=== PATIENT | female | born 1990 | race Hispanic/Latino ===

== ENCOUNTER 2018-09-05 14:56 | Emergency (ER) | payer SELFPAY ==
[~2018-09-05] VITALS: Ht 157.5 cm; Wt 63.5 kg
[2018-09-05 15:47] LABS: BASOPHILS % 0.3 % (0.0-1.0); EOSINOPHILS % 0.6 % (0.0-6.0); HEMATOCRIT 33.8 % (34.2-44.1); HEMOGLOBIN 10.3 g/dL (12.0-16.0); LYMPHOCYTES # (AUTO) 1.5 (1.0-3.2); LYMPHOCYTES % 21.3 % (18.0-39.1); MEAN CORPUSCULAR HEMOGLOBIN 23.6 pg (28-32); MEAN CORPUSCULAR HGB CONC 30.5 g/dL (31-35); MEAN CORPUSCULAR VOLUME 77.5 fL (81-99); MONOCYTES # (AUTO) 0.3 (0.2-0.8); MONOCYTES % 3.7 % (4.4-11.3); NEUTROPHILS # (AUTO) 5.1 (2.1-6.9); NEUTROPHILS % 73.8 % (38.7-80.0); PLATELET COUNT 403 x10e3/uL (140-360); RED BLOOD COUNT 4.36 x10e6/uL (3.6-5.1); RED CELL DISTRIBUTION WIDTH 16.1 % (11.7-14.4)
[2018-09-05] MEDS ORDERED: HYDROCODONE/APAP 10MG-325MG TAB PO NR (16:00)
[2018-09-05] MEDS ORDERED: ONDANSETRON HCL 4 MG ORAL DISINTEGRATING TAB PO NR (16:00)
[2018-09-05 16:05] LABS: ALANINE AMINOTRANSFERASE 14 IU/L (0-55); ALBUMIN 4.2 g/dL (3.5-5.0); ALBUMIN/GLOBULIN RATIO 1.2 (0.8-2.0); ALKALINE PHOSPHATASE 62 IU/L (40-150); ANION GAP 14.7 mmol/L (8-16); BLOOD UREA NITROGEN 8 mg/dL (7-26); BUN/CREATININE RATIO 13 (6-25); CALCIUM 9.3 mg/dL (8.4-10.2); CARBON DIOXIDE 22 mmol/L (22-29); CHLORIDE 103 mmol/L (98-107); CREATININE, SERUM 0.64 mg/dL (0.57-1.11); EST GLOMERULAR FILTRATION RATE > 60 ML/MIN (60-); GLUCOSE 112 mg/dL (74-118); POTASSIUM 3.7 mmol/L (3.5-5.1); SODIUM 136 mmol/L (136-145)
[2018-09-05 16:30] LABS: HCG,QUANTITATIVE 37136.89 mIU/mL (0-10)
--- NOTE | 2018-09-05 16:47 | Diagnostic Imaging Report ---
EXAMINATION: Transvaginal ultrasound. CLINICAL INDICATION: Abdominal pain, weakness, dizziness , last menstrual period 07/11/2018. COMPARISON: None available DISCUSSION: Transverse and sagittal transvaginal images were obtained of the pelvis with supplemental transabdominal images. The uterus measures 6.9 x 5.5 x 6 cm. Within the endometrium there is a gestational sac of average diameter 1.64 cm, containing an embryo with crown-rump length 1.40 cm, corresponding to an estimated gestational age of 7 weeks, 5 days. cardiac activity is identified at a rate of 152 bpm. The ovaries are normal in size and echogenicity. The right ovary measures 1.5 x 1.5 x 1.4 centimeters. The left ovary is not identified. Small amount of simple free pelvic fluid. IMPRESSION: Sonographic findings compatible with a currently viable intrauterine , estimated gestational age 7 weeks 5 days by crown-rump length. Signed by: Dr. Solis Melton M.D. on 09/05/2018 4:43 PM
[2018-09-05 18:13] LABS: BILIRUBIN,URINE NEGATIVE (NEGATIVE); CLARITY,URINE CLEAR (CLEAR); COLOR,URINE YELLOW (YELLOW); KETONES,URINE NEGATIVE (NEGATIVE); LEUKOCYTE ESTERASE ,URINE NEGATIVE (NEGATIVE); NITRITE,URINE NEGATIVE (NEGATIVE); PROTEIN,URINE DIPSTICK NEGATIVE (NEGATIVE); URINE UROBILINOGEN 1 mg/dL (0.2 - 1)
[2018-09-05 18:22] LABS: AMORPHOUS SEDIMENT,URINE FEW (FEW)
[2018-09-05 18:39] VITALS: BP 115/65
== END 2018-09-05 18:49 | disposition home or self-care (01) ==
LOC: ER 14:56
DX: Z32.01 Encounter for pregnancy test, result positive (principal); R10.2 Pelvic and perineal pain
CPT/HCPCS: 36415; 76817; 80053; 81001; 84702; 85025; 87086; 99284